=== PATIENT | female | born 1960 | race African-American/Black ===

== ENCOUNTER 2019-11-03 10:13 | Emergency (ER) | payer MEDICAID ==
[2019-11-03 10:43] VITALS: BP 153/78
--- NOTE | 2019-11-03 12:15 | ER Document Report ---
HPI - HPI Patient complains to provider of: pain under right breast Time Seen by Provider: 11/03/19 10:34 Onset: Other - 2 months Quality of pain: No pain Pain Level: Denies Context: This 59-year-old female presents emergency department with complaints of swelling under her right breast. She reports it started after she wore a bra with underwire. She denies history of MRSA. Denies other symptoms such as fever vomiting diarrhea. Denies pain. Patient also reports she is worried she is a diabetic because she has a lot of sweets. She reports she moved from [place] to [place] in July. At that time she was told she was borderline hypertension borderline diabetic. She is requesting an Accu-Chek. She denies urinary frequency. Denies increased thirst. Denies pain with void. Associated Symptoms: None Exacerbated by: Denies Relieved by: Denies Similar symptoms previously: No Recently seen / treated by doctor: No - CONSTITUTIONAL Constitutional: DENIES: Fever, Chills - NEURO Neurology: REPORTS: Headache. DENIES: Weakness, Vision blurred, Dizzinesss / Vertigo - REPRODUCTIVE Reproductive: DENIES: : Past Medical History - General Information source: Patient - Social History Smoking Status: Current Every Day Smoker Cigarette use (# per day): Yes Frequency of alcohol use: None Drug Abuse: None Family History: None Patient has suicidal ideation: No Patient has homicidal ideation: No - Past Medical History Cardiac Medical History: Reports: Hx Hypertension Endocrine Medical History: Reports: Hx Diabetes Mellitus Type 2 - Prediabetes Past Surgical History: Reports: Hx Section Vertical Provider Document - CONSTITUTIONAL Agree With Documented VS: Yes Exam Limitations: No Limitations General Appearance: WD/WN, No Apparent Distress - INFECTION CONTROL TRAVEL OUTSIDE OF THE [place] IN LAST 30 DAYS: No - HEENT HEENT: Atraumatic, Normocephalic - NECK Neck: Normal Inspection, Supple. negative: Lymphadenopathy-Left, Lymphadenopathy-Right - RESPIRATORY Respiratory: Breath Sounds Normal, No Respiratory Distress, Chest Non-Tender - CARDIOVASCULAR Cardiovascular: Regular Rate, Regular Rhythm - GI/ABDOMEN Gastrointestinal: Abdomen Soft, Abdomen Non-Tender - BACK Back: Normal Inspection. negative: CVA Tenderness-Right, CVA Tenderness-Left - MUSCULOSKELETAL/EXTREMETIES Musculoskeletal/Extremeties: STANISLAV HORNE - NEURO Level of Consciousness: Awake, Alert, Appropriate Motor/Sensory: No Motor Deficit - DERM Integumentary: Warm, Dry Adult Front & Back Diagram: 1 - Small swelling noted under right breast. No obvious pustule no induration no fluctuance no erythema no warmth Course - Re-evaluation Re-evalutation: 11/03/19 12:14 Patient presents with swelling under her right breast. She reports it started after she wore a bra with underwire. Denies history of MRSA. She is also worried about being a diabetic because she was prediabetic when she moved from [place] to [place] in July. She reports she has been eating a lot of sweets. Accu-Chek was 136 today. 11/03/19 12:43 Breast Ultrasound 11/03/19 10:39 IMPRESSION: Solid hypoechoic mass in the inferior breast. - Vital Signs Vital signs: Temp Pulse Resp BP Pulse Ox 97.7 F 78 18 153/78 H 99 11/03/19 10:37 11/03/19 10:37 11/03/19 10:37 11/03/19 10:37 11/03/19 10:37 - Diagnostic Test Radiology reviewed: Image reviewed, Reports reviewed Discharge - Discharge Clinical Impression: Pain under right breast Condition: Stable Disposition: HOME, SELF-CARE Instructions: Family Physicians / Practices, Ob-Procurement Analyst Doctors, Surgeon Additional Instructions: *You have been treated for pain under right breast *The ultrasound showed Solid hypoechoic mass in the inferior breast. (A h ypoechoic mass is tissue in the body thats more dense or solid than usual) *Avoid wearing a bra with underwire for comfort *Monitor the site for signs of infection such as increasing pain, redness, swelling, warmth *Follow up with a primary care provider or DIRECTOR OF ACQUISITION MARKETING for order for mammogram and referral to surgeon as indicated *Return to ED for signs of infection, worsening condition, changes, needs Monitor your blood pressure. Your blood pressure was elevated today. This may be because you were anxious, in pain or because you need medication. It is important to follow up with your primary care provider for full evaluation. Forms: Elevated Blood Pressure, Smoking Cessation Education
--- NOTE | 2019-11-03 12:31 | RADIOLOGY REPORT (SQ) ---
EXAM DESCRIPTION: U/S BREAST UNILATERAL LIMITED COMPLETED DATE/TIME: 11/03/2019 12:07 pm REASON FOR STUDY: Under right breast abscess? COMPARISON: None TECHNIQUE: Static and Realtime grayscale interrogation of focal area(s) of concern in the right [address]en st(s) acquired, 7 o'clock location inframammary region. Selected color doppler/spectral images saved to PACS. LIMITATIONS: None. FINDINGS: Masses:Oval hypoechoic mass located in the subcutaneous tissues, measuring 0.5 x 0.8 x 1.4 cm. Vascularity present on Doppler imaging. Oriented parallel to the skin. No distal shadowing. Architecture:No alteration of normal morphology. No skin thickening. No edema. Other: None. IMPRESSION: Solid hypoechoic mass in the inferior breast. BIRAD: 0 Incomplete: Need additional imaging evaluation and/or prior mammograms for comparison.. RECOMMENDATION: RECOMMENDED FOLLOW-UP: Patient will need diagnostic mammography and the mammograms w ill need to be compared to the prior mammograms which were reportedly done in 2018 in [place]. COMMENT: The [employer] ([employer]) has developed recommendations for screening MRI of the breasts in certain patient populations, to be used in conjunction with mammography. Breast MRI s urveillance may be appropriate for women with more than 20% lifetime risk of developing breast cancer as determined by genetic testing, significant family history of the disease, or history of mantle r adiation for Hodgkins Disease. [employer] Practice Guidelines 2008. TECHNICAL DOCUMENTATION: FINDING NUMBER: (1) ASSESSMENT: (1) JOB ID: [id number] [employer]- All Rights Reserved Reading location - IP/workstation name: [email or web address]
== END 2019-11-03 13:04 | disposition home or self-care (01) ==
LOC: ER 10:13
DX: R10.9 Unspecified abdominal pain (principal); R22.2 Localized swelling, mass and lump, trunk; R51 Headache; F17.210 Nicotine dependence, cigarettes, uncomplicated; I10 Essential (primary) hypertension; E11.9 Type 2 diabetes mellitus without complications
CPT/HCPCS: 76642; 82962; 99283

== ENCOUNTER 2020-06-02 09:55 | Emergency (ER) | payer MEDICAID ==
[2020-06-02 10:00] VITALS: BP 171/102
== END 2020-06-02 11:05 | disposition left against medical advice (07) ==
LOC: ER 09:55
DX: Z53.21 Procedure and treatment not carried out due to patient leaving prior to being seen by health care provider (principal); H92.09 Otalgia, unspecified ear

== ENCOUNTER 2020-06-07 20:03 | Emergency (ER) | payer MEDICAID ==
--- NOTE | 2020-06-07 20:47 | ER Document Report ---
ED Medical Screen (RME) - General Chief Complaint: Altered Mental Status Stated Complaint: ALTERED MENTAL STATUS/SUGAR ISSUES/BP ISSUE Time Seen by Provider: 06/07/20 20:45 Mode of Arrival: Ambulatory Information source: Patient Notes: 60-year-old male presented to ED because he woke up feeling very dazed about 1950 this evening. She states she felt very strange like she did not know where she was or who she was. She states she feels like her normal self now. She states she was worried that she had high blood sugar and high blood pressure. She is alert and oriented answering all questions appropriate now. She states she feels her normal now but she is very worried about what was going on before. She states she would like some blood and urine to find out what is going on with her. I did tell her that I will go ahead and run some blood and urine and she could get assessed by another provider. She states she knows who she is where she is she does not have any facial droop she does not have any change in orientation at this time. I have greeted and performed a rapid initial assessment of this patient. A comprehensive ED assessment and evaluation of the patient, analysis of test results and completion of medical decision making process will be conducted by an additional ED providers. TRAVEL OUTSIDE OF THE [place] IN LAST 30 DAYS: No - Related Data Allergies/Adverse Reactions: No Known Allergies Allergy (Verified 06/07/20 20:40) Past Medical History - Past Medical History Cardiac Medical History: Reports: Hx Hypertension Endocrine Medical History: Reports: Hx Diabetes Mellitus Type 2 - Prediabetes Past Surgical History: Reports: Hx Section Physical Exam - Vital signs Vitals: Temp Pulse Resp BP Pulse Ox 98.2 F 81 20 155/95 H 97 06/07/20 20:13 06/07/20 20:13 06/07/20 20:13 06/07/20 20:13 06/07/20 20:13 Course - Vital Signs Vital signs: Temp Pulse Resp BP Pulse Ox 98.2 F 81 20 155/95 H 97 06/07/20 20:13 06/07/20 20:13 06/07/20 20:13 06/07/20 20:13 06/07/20 20:13
[2020-06-07 21:40] LABS: VENOUS BLOOD HCO3 27.1 mmol/L (20-32); VENOUS BLOOD PCO2 59.1 mmHg (35-63); VENOUS BLOOD PH 7.28 (7.30-7.42)
[2020-06-07 21:43] LABS: ABSOLUTE EOSINOPHILS # (AUTO) 0.2 10^3/uL (0.0-0.6); ABSOLUTE LYMPHOCYTES (AUTO) 2.7 10^3/uL (0.5-4.7); ABSOLUTE MONOCYTES (AUTO) 0.4 10^3/uL (0.1-1.4); ABSOLUTE NEUT (AUTO) 4.4 10^3/uL (1.7-8.2); BASOPHILS % (AUTO) 0.4 % (0-2); EOSINOPHILS % (AUTO) 2.6 % (0-6); HEMATOCRIT 38.5 % (36.0-47.0); HEMOGLOBIN 12.6 g/dL (12.0-15.5); LYMPHOCYTES % (AUTO) 35.1 % (13-45); MEAN CORPUSCULAR HEMOGLOBIN 26.9 pg (27.0-33.4); MEAN CORPUSCULAR HGB CONC 32.6 g/dL (32.0-36.0); MEAN CORPUSCULAR VOLUME 83 fl (80-97); MONOCYTES % (AUTO) 4.8 % (3-13); PLATELET COUNT 356 10^3/uL (150-450); RED BLOOD COUNT 4.67 10^6/uL (3.72-5.28); RED CELL DISTRIBUTION WIDTH 13.1 % (11.5-14.0); SEGMENTED NEUTROPHILS % (AUTO) 57.1 % (42-78); TOTAL CELLS COUNTED % (AUTO) 100 %; WHITE BLOOD COUNT 7.7 10^3/uL (4.0-10.5)
[2020-06-07 22:01] LABS: ALBUMIN 4.4 g/dL (3.5-5.0); ALKALINE PHOSPHATASE 39 U/L (38-126); ANION GAP 9 (5-19); ASPARTATE AMINO TRANSFERASE 20 U/L (14-36); BILIRUBIN,DIRECT 0.3 mg/dL (0.0-0.4); BILIRUBIN,TOTAL 0.4 mg/dL (0.2-1.3); BLOOD UREA NITROGEN 14 mg/dL (7-20); CALCIUM 9.6 mg/dL (8.4-10.2); CARBON DIOXIDE 26 mmol/L (22-30); CHLORIDE 106 mmol/L (98-107); GLUCOSE 106 mg/dL (75-110); POTASSIUM 3.9 mmol/L (3.6-5.0); TOTAL PROTEIN 7.4 g/dL (6.3-8.2)
[2020-06-07 23:29] VITALS: BP 187/95
[2020-06-08 01:30] LABS: APPEARANCE,URINE CLEAR; BILIRUBIN,URINE NEGATIVE (NEGATIVE); COLOR,URINE YELLOW; GLUCOSE, URINE NEGATIVE (NEGATIVE); KETONES,URINE NEGATIVE (NEGATIVE); LEUKOCYTE ESTERASE,URINE NEGATIVE (NEGATIVE); NITRITE,URINE NEGATIVE (NEGATIVE); PROTEIN,URINE NEGATIVE (NEGATIVE); URINE SPECIFIC GRAVITY 1.019; UROBILINOGEN,URINE NEGATIVE mg/dL (<2.0)
--- NOTE | 2020-06-08 01:34 | ER Document Report ---
ED General - General Chief Complaint: Altered Mental Status Stated Complaint: ALTERED MENTAL STATUS/SUGAR ISSUES/BP ISSUE Time Seen by Provider: 06/07/20 20:45 Mode of Arrival: Ambulatory TRAVEL OUTSIDE OF THE [place] IN LAST 30 DAYS: No - HPI Notes: Patient is a 60-year-old female who presents to the emergency department for evaluation after she had a minute or 2 of altered mental status. The patient admits she does not sleep regularly. She is currently taking care of her 6-y ear-old, 4-year-old, and 6-month-old grandchildren, 1 of whom is autistic. She admits they are not on a regular schedule, so she does not sleep regularly. She states she had an especially frustrating afternoon, went and got some Pepsi and cake, then took a nap. When she woke up she was extremely confused. She states it only lasted for 1 to 2 minutes. She states that after that she has had no symptoms. She denies any difficulty seeing, speaking, swallowing. She is moving her arms and legs without difficulty. She admits she has not seen a primary care doctor. She states that at this time she feels back to her baseline. - Related Data Allergies/Adverse Reactions: No Known Allergies Allergy (Verified 06/07/20 20:40) Home Medications: None Past Medical History - General Information source: Patient - Social History Smoking Status: Current Every Day Smoker Drug Abuse: None Family History: DM, Hypertension - Past Medical History Cardiac Medical History: Reports: Hx Hypertension - Patient states her blood pressure is high, not diagnosed or on medication Endocrine Medical History: Reports: Hx Diabetes Mellitus Type 2 - Prediabetes Past Surgical History: Reports: Hx Section - X2 Review of Systems - Review of Systems Constitutional: No symptoms reported EENT: No symptoms reported Cardiovascular: No symptoms reported Respiratory: No symptoms reported Gastrointestinal: No symptoms reported Genitourinary: No symptoms reported Musculoskeletal: No symptoms reported Skin: No symptoms reported Neurological/Psychological: See HPI Physical Exam - Vital signs Vitals: Temp Pulse Resp BP Pulse Ox 98.2 F 81 20 155/95 H 97 06/07/20 20:13 06/07/20 20:13 06/07/20 20:13 06/07/20 20:13 06/07/20 20:13 - Notes Notes: Vital signs reviewed, please refer to chart. Head is normocephalic, atraumatic. Pupils equal round, reactive to light. Neck is supple without meningismus. Heart is regular rate and rhythm. Lungs are clear to auscultation bilaterally. Abdomen is soft, nontender, normoactive bowel sounds throughout. Extremities without cyanosis, clubbing. Posterior calves are nontender. Peripheral pulses are equal. Skin is warm and dry. Patient is awake, alert, oriented x3. Cranial nerves II - XII are grossly intact without focal neurological deficits. Strength is plus 5 out of 5 bilateral upper and lower extremities. Sensation is intact. Reflexes symmetrical. Intact [id number], rapid alternating movements, [id number]. Course - Re-evaluation Re-evalutation: 06/08/20 01:32 Patient presents to the emergency department for evaluation of transient altered mental status. The patient is sleep deprived, her symptoms only lasted for a moment or 2 when she woke up. I suspect this is also secondary to fatigue. She has a normal exam here, with the exception of elevated blood pressure. We talked at length about lifestyle modification, checking her blood pressure, and follow-up closely with primary care. She is amenable to this plan. Otherwise, she is to return to the ED with worsening or new concerning symptoms of any sort. - Vital Signs Vital signs: Temp Pulse Resp BP Pulse Ox 98.2 F 76 20 187/95 H 100 06/07/20 23:16 06/07/20 23:16 06/07/20 20:47 06/07/20 23:16 06/07/20 23:16 - Laboratory Result Diagrams: 06/07/20 21:19 06/07/20 21:19 Laboratory results interpreted by me: 06/07/20 06/07/20 21:19 21:19 MCH 26.9 L VBG pH 7.28 L - Diagnostic Test Radiology reviewed: Reports reviewed Discharge - Discharge Clinical Impression: Elevated blood-pressure reading without diagnosis of hypertension Altered mental status Qualifiers: Altered mental status type: transient alteration of awareness Qualified Code(s): R40.4 - Transient alteration of awareness Condition: Stable Disposition: HOME, SELF-CARE Instructions: Altered Mental Status ([facility]), High Blood Pressure ([facility]) Additional Instructions: I suspect your episode of confusion was due to fatigue. Please try to rest. You should also keep a record of your blood pressures as discussed, bring this to follow-up with primary care. Try to quit smoking. Return to the emergency department with worsening or new concerning symptoms of any sort. Forms: Smoking Cessation Education Referrals: VARGAS KNAPP MD [COMMUNITY BASED STAFF] - Follow up as needed SUNNI FOOTE MD [ACTIVE STAFF] - Follow up as needed
== END 2020-06-08 01:43 | disposition home or self-care (01) ==
LOC: ER 20:03
DX: R40.4 Transient alteration of awareness (principal); R03.0 Elevated blood-pressure reading, without diagnosis of hypertension; F17.200 Nicotine dependence, unspecified, uncomplicated
CPT/HCPCS: 36415; 80053; 81001; 82803; 82962; 85025; 99283